=== PATIENT | male | born 1945 | race Caucasian/White ===

== ENCOUNTER 2024-09-23 08:21 | Outpatient (CLI) | payer OTHER, SELFPAY | END 2024-09-23 08:22 | disposition home or self-care (01) | PROVIDERS: Visit Provider Chiropractor | DX: I25.10 Atherosclerotic heart disease of native coronary artery without angina pectoris (principal); I51.7 Cardiomegaly; I35.1 Nonrheumatic aortic (valve) insufficiency; I34.0 Nonrheumatic mitral (valve) insufficiency | CPT/HCPCS: 93306 ==